=== PATIENT | female | born 1960 | race Native Hawaiian/Other Pacific Islander ===

== ENCOUNTER 2016-09-22 14:45 | Inpatient (IN) | payer OTHER, MEDICARE ==
[~2016-09-22] VITALS: Ht 162.6 cm; Wt 52.4 kg
[2016-09-22 15:23] LABS: BASOPHILS # (AUTO) 0.1 K/uL (0.0-8.0); BASOPHILS % (AUTO) 0.7 % (0.0-2.0); EOSINOPHILS # (AUTO) 0.1 K/uL (0.0-0.7); EOSINOPHILS % (AUTO) 1.1 % (0.0-7.0); HEMATOCRIT 37.4 % (37-47); HEMOGLOBIN 12.5 G/DL (12.0-16.0); LYMPHOCYTES # (AUTO) 1.9 K/UL (0.8-4.8); LYMPHOCYTES % (AUTO) 24.7 % (20.5-51.5); MEAN CORPUSCULAR HEMOGLOBIN 31.1 UUG (27.0-31.0); MEAN CORPUSCULAR HGB CONC 33 g/dL (32.0-37.0); MEAN CORPUSCULAR VOLUME 93.2 FL (81.0-99.0); MONOCYTES # (AUTO) 0.5 K/UL (0.1-1.30); MONOCYTES % (AUTO) 6.6 % (0.0-11.0); NEUTROPHILS # (AUTO) 4.9 K/UL (1.8-8.9); NEUTROPHILS % (AUTO) 66.9 % (38.5-71.5); PLATELET COUNT (AUTO) 262 K/UL (150-450); RED BLOOD CELL COUNT(AUTO) 4.01 MIL/UL (4.2-5.4); WHITE BLOOD COUNT (AUTO) 7.5 K/UL (4.0-11.2)
[2016-09-22 15:32] LABS: CREATININE 0.7 mg/dL (0.6-1.3); POTASSIUM 3.7 mmol/L (3.5-5.1)
[2016-09-22 15:44] LABS: BILIRUBIN,DIRECT 0.2 mg/dL (0.0-0.2); BILIRUBIN,TOTAL 0.7 mg/dL (0.2-1.0); TOTAL PROTEIN, SERUM 7.1 g/dL (6.4-8.2)
[2016-09-22] MEDS ORDERED: ASPIRIN 81 MG TAB.CHEW PO ONE (16:30)
[2016-09-22] MEDS ORDERED: NITROGLYCERIN 0.4 MG/TAB BOTTLE SL PRN (17:30)
[2016-09-22] MEDS ORDERED: ONDANSETRON 4 MG/2 ML VIAL IV PRN (17:30)
[2016-09-22] MEDS ORDERED: MORPHINE SULFATE 2 MG/1 ML DISP.SYRIN IV PRN ×2 (17:30)
[2016-09-22] MEDS ORDERED: LORAZEPAM 0.5 MG TABLET PO PRN (17:30)
[2016-09-22] MEDS ORDERED: ACETAMINOPHEN 325 MG TABLET PO PRN (17:30)
[2016-09-22] MEDS ORDERED: ASPIRIN 81 MG TAB.CHEW ONE (17:39)
[2016-09-22 18:22] VITALS: BP 92/57
[2016-09-22 20:35] VITALS: BP 107/67
[2016-09-22] MEDS: CARVEDILOL 3.125 MG TABLET PO SCH (21:00)
[2016-09-22] MEDS: SIMVASTATIN 20 MG TABLET PO SCH (21:00)
[2016-09-22] MEDS ORDERED: SIMVASTATIN 10 MG TABLET PO SCH (21:00)
[2016-09-22] MEDS ORDERED: LACTULOSE 20 G/30 ML LIQUID UDC PO PRN (21:00)
[2016-09-22] MEDS ORDERED: IV NS 1000 ML 1,000 ML IV PRN (23:00)
[2016-09-23 00:06] VITALS: BP 103/57
[2016-09-23 02:08] LABS: *BILIRUBIN,URIN NEGATIVE (NEGATIVE); *BLOOD, URINE Trace-intact (NEGATIVE); *CLARITY,URINE CLEAR (CLEAR); *COLOR,URINE YELLOW (YELLOW); *KETONES,URINE NEGATIVE (NEGATIVE); *PROTEIN,URINE NEGATIVE (NEGATIVE); *UROBILINOGEN,URINE 0.2 E.U./dl (NORMAL); LEUKOCYTE ESTERASE ,URINE NEGATIVE (NEGATIVE); NITRITE, URINE NEGATIVE (NEGATIVE); UGLUCOSE NEGATIVE (NEGATIVE)
[2016-09-23 02:27] LABS: BACTERIA,URINE FEW /HPF (NONE SEEN); RBC,URINE 0-3 /HPF (0-3); SQUAMOUS EPITHELIAL CELL,UR FEW /HPF (NONE SEEN); WBC,URINE 0-3 /HPF (0-3)
[2016-09-23 06:23] VITALS: BP 98/53
[2016-09-23 07:00] LABS: BASOPHILS % (AUTO) 0.8 % (0.0-2.0); EOSINOPHILS # (AUTO) 0.2 K/uL (0.0-0.7); EOSINOPHILS % (AUTO) 3.5 % (0.0-7.0); HEMATOCRIT 34.5 % (37-47); HEMOGLOBIN 11.8 G/DL (12.0-16.0); LYMPHOCYTES # (AUTO) 2.5 K/UL (0.8-4.8); LYMPHOCYTES % (AUTO) 39.6 % (20.5-51.5); MEAN CORPUSCULAR HEMOGLOBIN 31.9 UUG (27.0-31.0); MEAN CORPUSCULAR HGB CONC 34 g/dL (32.0-37.0); MEAN CORPUSCULAR VOLUME 93.8 FL (81.0-99.0); MONOCYTES # (AUTO) 0.5 K/UL (0.1-1.30); MONOCYTES % (AUTO) 7.4 % (0.0-11.0); NEUTROPHILS % (AUTO) 48.7 % (38.5-71.5); PLATELET COUNT (AUTO) 243 K/UL (150-450); RED BLOOD CELL COUNT(AUTO) 3.68 MIL/UL (4.2-5.4); WHITE BLOOD COUNT (AUTO) 6.2 K/UL (4.0-11.2)
[2016-09-23] MEDS: PANTOPRAZOLE SODIUM 40 MG TABLET.DR PO SCH ×2 (07:00→10:28)
[2016-09-23 07:30] LABS: CREATININE 0.7 mg/dL (0.6-1.3); MAGNESIUM 2.1 mg/dL (1.8-2.4); PHOSPHOROUS 4.3 mg/dL (2.5-4.9)
[2016-09-23] MEDS: CARVEDILOL 3.125 MG TABLET PO SCH ×2 (08:27→21:00)
[2016-09-23] MEDS: ASPIRIN 81 MG TAB.CHEW PO SCH (10:28)
[2016-09-23 11:30] VITALS: BP 113/48
[2016-09-23 13:20] VITALS: BP 104/66
[2016-09-23 15:23] LABS: THYROID STIMULATING HORMONE 1.783 mIU/mL (0.358-3.740)
[2016-09-23 20:00] VITALS: BP 107/64
[2016-09-23 21:00] VITALS: BP 107/64
[2016-09-23] MEDS: SIMVASTATIN 20 MG TABLET PO SCH (21:00)
[2016-09-24] MEDS: PANTOPRAZOLE SODIUM 40 MG TABLET.DR PO SCH (06:32)
[2016-09-24] MEDS: CARVEDILOL 3.125 MG TABLET PO SCH (09:00)
[2016-09-24] MEDS: ASPIRIN 81 MG TAB.CHEW PO SCH (09:00)
[2016-09-26 17:10] LABS: *VITAMIN D 25-OH VIT D 36 ng/mL (.); *VITAMIN D 25-OH, D2 <1.0 ng/mL (.); *VITAMIN D 25-OH, D3 36 ng/mL (.)
== END 2016-09-24 14:46 | disposition home or self-care (01) | DRG 384 ==
LOC: ER 14:45 → TELE 17:16 → MED 09-23 14:05
PROVIDERS: ADMIT Internal Medicine; ATTEND Internal Medicine
DX: K27.9 Peptic ulcer, site unspecified, unspecified as acute or chronic, without hemorrhage or perforation (principal); F32.9 Major depressive disorder, single episode, unspecified; F43.9 Reaction to severe stress, unspecified; R07.89 Other chest pain; G44.229 Chronic tension-type headache, not intractable; G43.909 Migraine, unspecified, not intractable, without status migrainosus; Z88.6 Allergy status to analgesic agent; Z80.9 Family history of malignant neoplasm, unspecified; Z82.3 Family history of stroke; F41.9 Anxiety disorder, unspecified
CPT/HCPCS: 36415; 70030-TC; 76700; 83690; 83735; 84100; 84207; 84443; 85025; 85610; 85730; 93005; 93307; A4663; J7030

== ENCOUNTER 2024-02-14 01:24 | Emergency (ER) | payer MEDICARE, OTHER ==
[~2024-02-14] VITALS: Ht 162.6 cm; Wt 68.0 kg
[2024-02-14] MEDS: TETRACAINE HCL 0.5% OPHT DROP 2 ML BOTTLE OP ONE (02:03)
[2024-02-14] MEDS: FLUORESCEIN SODIUM 1 MG STRIP OP ONE (02:03)
[2024-02-14] MEDS ORDERED: ERYTHROMYCIN 0.5% OPHT OINT 3.5 GM TUBE ONE (02:43)
[2024-02-14] MEDS: ERYTHROMYCIN 0.5% OPHT OINT 3.5 GM TUBE OP ONE (02:47)
[2024-02-14] MEDS ORDERED: ERYT3.5O24 EACHEYE (02:48)
[2024-02-14] MEDS ORDERED: PRED5DRO24 LEFTEYE (02:48)
[2024-02-14 02:58] VITALS: BP 118/79; O2SAT 98
== END 2024-02-14 02:59 | disposition home or self-care (01) ==
LOC: ER 01:30
DX: S05.8X2A Other injuries of left eye and orbit, initial encounter (principal); H16.202 Unspecified keratoconjunctivitis, left eye; Z60.2 Problems related to living alone; Z88.5 Allergy status to narcotic agent; X58.XXXA Exposure to other specified factors, initial encounter; Y93.89 Activity, other specified; Y92.89 Other specified places as the place of occurrence of the external cause; Y99.8 Other external cause status
CPT/HCPCS: 99284; J7120; A4606; A4663